=== PATIENT | male | born 1990 | race Two or more races ===

== ENCOUNTER 2020-09-24 00:34 | Emergency (ER) | payer SELFPAY ==
--- NOTE | 2020-09-24 00:54 | EDM.PDOC ---
ED HPI GENERAL MEDICAL PROBLEM - General Chief Complaint: Upper Extremity Injury/Pain Stated Complaint: LEFT ARM PAIN Time Seen by Provider: 09/24/20 00:54 Source of Information: Reports: Patient History Limitations: Reports: No Limitations - History of Present Illness INITIAL COMMENTS - FREE TEXT/NARRATIVE: 30-year-old male of [place] descent presents to the ED for evaluation of left arm pain primarily in his anterior elbow area. He reports that he was arm wrestling about a week ago and the pain started about 2 days later. 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 Pain is constant and made worse by pronation supination at the elbow and fully flexing his biceps tendon. Of note patient is left-hand dominant Onset: Gradual Onset Date: 09/19/20 (Arm wrestling a week ago pain started 2 days later) Duration: Day(s):, Constant Location: Reports: Upper Extremity, Left Quality: Reports: Ache, Burning, Stabbing Severity: Moderate (Is not sharp and stabbing occasional burning discomfort) Improves with: Reports: Rest Worsens with: Reports: Movement (Fully flexing his biceps increases the pain as does pronation supination particularly supination at the elbow) Context: Reports: Trauma (Likely traumatized the distal insertion site of the biceps tendon from arm wrestling). Denies: Activity, Exercise, Lifting, Sick Contact Associated Symptoms: Reports: No Other Symptoms Treatments INTERNAL MEDICINE HOSPITALIST: Reports: Other (see below) Left Arm Pain Score (Numeric/FACES): 7 - Related Data Allergies Allergy/AdvReac Type Severity Reaction Status Date / Time No Known Allergies Allergy Verified 09/24/20 00:56 Home Meds: Home Meds Diclofenac Sodium [Voltaren] 75 mg PO BIDMEALS #20 tab.cr 09/24/20 [Rx] Social & Family History - Living Situation & Occupation Occupation: Employed Review of Systems - Review of Systems Review Of Systems: See Below Constitutional: Reports: No Symptoms Eyes: Reports: No Symptoms Ears: Reports: No Symptoms Nose: Reports: No Symptoms Mouth/Throat: Reports: No Symptoms Respiratory: Reports: No Symptoms Cardiovascular: Reports: No Symptoms GI/Abdominal: Reports: No Symptoms Genitourinary: Reports: No Symptoms Musculoskeletal: Reports: No Symptoms Skin: Reports: No Symptoms Neurological: Reports: No Symptoms Psychiatric: Reports: No Symptoms ED EXAM, GENERAL - Physical Exam Exam: See Below Exam Limited By: No Limitations General Appearance: Alert, WD/WN, No Apparent Distress, Other (Temperature is 36.1 degrees. Heart rate 76 and sinus respiratory is 14 with O2 sats of 98%. BP 03/26/1965.) Eye Exam: Bilateral Eye: Normal Inspection (No scleral icterus or blepharal pallor.), PERRL Extremities: Other (Lamination was limited to his left upper extremity. He has no pain at the proximal insertion site of the long head and short head of the biceps tendon. Pain is well localized to the distal biceps tendon along its length as well as particularly at the insertion site on the ulna. He has limited ful) Neurological: Alert, Oriented, CN II-XII Intact, Normal Cognition, Normal Gait Psychiatric: Normal Affect, Normal Mood Skin Exam: Warm, Dry, Intact, Normal Color, No Rash Course - Vital Signs Last Recorded V/S: Last Vital Signs Temp 36.1 C 09/24/20 00:54 Pulse 76 09/24/20 00:54 Resp 14 09/24/20 00:54 BP 123/66 09/24/20 00:54 Pulse Ox 98 09/24/20 00:54 - Orders/Labs/Meds Meds: Medications Discontinued Medications Generic Name Dose Route Start Last Admin Trade Name Gera PROfe Reason Stop Dose Admin Ibuprofen 800 mg 09/24/20 00:59 09/24/20 01:03 Ibuprofen 800 Mg Tab PO 09/24/20 01:00 800 mg ONETIME ONE Administration Oxycodone/Acetaminophen 1 tab 09/24/20 00:59 09/24/20 01:03 Acetaminophen/Oxycodone 325-5 Mg Tab PO 09/24/20 01:00 1 tab ONETIME ONE Administration - Radiology Interpretation Free Text/Narrative:: 30-year-old male of [place] descent presents to the ED with pain left anterior elbow area. History suggest that he was arm wrestling about a week ago and developed pain in this area 2 days later. Examination reveals distal tendinitis of the biceps tendon particular where it inserts into the ulna. Treatment is time to heal. Given Motrin 800 mg in the ED with 1 Percocet tablet for pain tonight. Prescription written for 75 mg of Voltaren twice daily with breakfast and supper for the next 10 days. Note given to excuse him from the workplace for the next 10 days until this tendonitis has time to settle down Departure - Departure Time of Disposition: 01:00 Disposition: Home, Self-Care 01 Condition: Fair Clinical Impression: Biceps tendonitis Qualifiers: Laterality: left Qualified Code(s): M75.22 - Bicipital tendinitis, left shoulder - Discharge Information *PRESCRIPTION DRUG MONITORING PROGRAM REVIEWED*: Not Applicable *COPY OF PRESCRIPTION DRUG MONITORING REPORT IN PATIENT SHANIKA: Not Applicable Prescriptions: Diclofenac Sodium [Voltaren] 75 mg PO BIDMEALS #20 tab.cr Instructions: Distal Biceps Tendinitis Rehab-SportsMed, Distal Biceps Tendinitis Referrals: PCP,None [Primary Care Provider] - Forms: ED Department Discharge, ED Return to Work/School Form Additional Instructions: Evaluation in the emergency room tonight in regards to persistent pain left anterior elbow at the insertion site of the biceps tendon. Biceps tendon has been strained in this area likely from arm wrestling. There is no evidence of a partial tear and the tendon appears to be intact but has been severely strained. Treatment is time to heal which is usually 7 to 14 days. You were given medication in the emergency room tonight for pain relief and to reduce inflammation and swelling. You will need to fill the prescription tomorrow for Voltaren 75 mg twice daily with breakfast and supper for the next 10 days to relieve pain and inflammation. Note will be given to excuse her from the workplace for the next week due to injury to this tendon since it is utilized for lifting pushing pulling and rotating with your hand. Since your left hand dominant this creates a significant disadvantage inability to use the left arm in the workplace until the tendon heals. Suggest nothing to lift, push, pull, carry with left hand until better which will be at least 10 to 14 days Sepsis Event Note (ED) - Focused Exam Vital Signs: Vital Signs Temp Pulse Resp BP Pulse Ox 09/24/20 00:54 36.1 C 76 14 123/66 98
[2020-09-24] MEDS ORDERED: Acetaminophen/oxyCODONE 325-5 MG Tab PO ONE (00:59)
[2020-09-24] MEDS ORDERED: Ibuprofen 800 MG Tab PO ONE (00:59)
== END 2020-09-24 01:45 | disposition home or self-care (01) ==
LOC: JD.ED 00:34
DX: M75.22 Bicipital tendinitis, left shoulder (principal)
CPT/HCPCS: 99283; A9270